=== PATIENT | male | born 1955 | race Caucasian/White ===

== ENCOUNTER 2017-11-04 17:46 | Inpatient (IN) | payer MEDICAID, OTHER ==
[~2017-11-04] VITALS: Ht 182.9 cm; Wt 81.3 kg
[~2017-11-04 17:46] MED LIST: ECASA81 PO; ENAL5TAB PO; FLUT1INH INH; FLUTI110I INH; HYDR-3580 PO; HYDR25TA5 PO; IPRASOL INH; METF500T PO; METO25TA3 PO; VIAG100T PO; WARF-60 PO; WARF4TAB52 PO
[2017-11-04 17:47] VITALS: BP 128/72; PULSE 68; RESP 18; TEMP 97.9; O2SAT 99
[2017-11-04] MEDS ORDERED: ENALAPRILAT 1.25 MG/ML VIAL IV PUSH PRN (18:00)
[2017-11-04] MEDS ORDERED: ONDANSETRON HCL 4 MG/2 ML VIAL IV PUSH PRN (18:00)
[2017-11-04] MEDS ORDERED: MAGNESIUM HYDROXIDE SUSP 30 ML CUP PO PRN (18:00)
[2017-11-04] MEDS: SODIUM CHLOR 0.9% 1000 ML INJ 1,000 ML IV SCH (18:00)
[2017-11-04] MEDS ORDERED: ACETAMINOPHEN/HYDROcodone 325 MG/5 MG TAB PO PRN ×2 (18:00)
[2017-11-04] MEDS ORDERED: PANTOPRAZOLE SODIUM 40 MG VIAL IVP SCH (18:00)
[2017-11-04] MEDS ORDERED: MISCELLANEOUS NURSING INFORMATION XX SCH (18:00)
[2017-11-04] MEDS ORDERED: SODIUM CHLORIDE 0.9% FLUSH 10 ML FLUSH IV FLUSH PRN (18:00)
[2017-11-04] MEDS ORDERED: CHLORHEXIDINE GLUCONATE 2 % 1 PACK (2 CLOTHS) TOP PRN (18:00)
--- NOTE | 2017-11-04 18:13 | PD ---
Physical Exam Date Seen by Provider: Nov 04, 2017 Time Seen by Provider: 18:01 Narrative The patient is a 62-year-old male was initially evaluated at [facility], after falling off a ladder. The patient denies any loss of consciousness, however, did suffer trauma to the left side of his body with abrasions to the forehead, contusion abrasions to the left shoulder, as well as abrasions to the hands and knees. The patient was evaluated and noted to have a subarachnoid hemorrhage as well as multiple left rib fractures, left clavicle fracture, and scapular fracture. The patient is on Coumadin for history of atrial fibrillation, his INR was 2.6 and they did not have case Center or FFP on scene. Therefore, the patient was transferred emergently to [facility]. The patient received case Center in the emergency department. I discussed the patient with the trauma surgeon who agrees with admission to the intensive surgical care unit. Incidentally, the patient states he had trauma one month ago and was evaluated at another hospital for possible subarachnoid hemorrhage, unsure if his current CT findings are acute or chronic. Data Data Last Documented VS Vital Signs Date Time Temp Pulse Resp B/P (MAP) Pulse Ox O2 Delivery O2 Flow Rate FiO2 11/04/17 17:47 97.9 68 18 128/72 (90) 99 Orders Orders Mrsa Pcr Surveillance (11/04/17 17:51) ^ Lab Follow Up (11/04/17 17:56) Type And Screen (11/04/17 17:56) Ct Brain W/O Iv Contrast(Rout) (11/05/17 06:56) Prothrombin Complex Conc Inj (Kcentra In (11/04/17 18:30) Hand, Limited (2vws) (11/04/17 ) Support Splint (11/04/17 17:58) MDM Medical Record Reviewed: Yes Supervised Visit with MELODY: No Interpretation(s) CT abdomen and pelvis reveals no acute traumatic findings in the abdomen and pelvis. Multiple left-sided rib fractures. Colonic diverticulosis, no evidence of acute diverticulitis. Cholelithiasis. CT cervical spine reveals no evidence of fracture. Multilevel degenerative findings. CT of the thorax reveals comminuted clavicular head fracture. Base of "cord process Fracture. Multiple left-sided rib fractures. No evidence of pneumothorax. Mild atelectasis at the lung bases. CT of the brain reveals hyperdense right MCA versus regional subarachnoid hemorrhage. MRI/MRA of the brain is recommended for further characterization of this region. Otherwise negative. No fracture. No midline shift Chest x-ray reveals left sixth rib fracture. Tiny left apical pneumothorax. Mild left basilar atelectasis. X-ray left shoulder reveals no evidence of acute fracture. Differential Diagnosis Differential diagnosis includes closed head injury, subarachnoid hemorrhage, coagulopathy, flail chest, rib fracture, pneumothorax, hemothorax, abrasion, fracture, hematoma. Narrative Course The patient was a transfer from [facility]. The patient arrived in the emergency department with a GCS of 15, he is awake, alert, oriented, vitals were stable. Pain had improved with morphine 4 mg intravenously ordered by myself via EMS protocol. The patient was evaluated by the trauma surgeon in the emergency department. He will receive KCentra and will be admitted to the intensive surgical care unit. The patient's left upper extremity was placed in a sling. X-ray the right hand was obtained. Patient appears to have an old healed boxer's fracture, no acute fractures noted. The patient was admitted to the intensive surgical care unit. Physician Communication Physician Communication The patient will be omitted to the intensive surgical care unit. Diagnosis Primary Impression: Subarachnoid hemorrhage following injury Qualified Codes: S06.6X0A - Traumatic subarachnoid hemorrhage without loss of consciousness, initial encounter Additional Impressions: Multiple rib fractures Qualified Codes: S22.42XA - Multiple fractures of ribs, left side, initial encounter for closed fracture Scapula coracoid process fracture Qualified Codes: S42.135A - Nondisplaced fracture of coracoid process, left shoulder, initial encounter for closed fracture Admitting Information Admitting Physician Requests: Admit Condition: Stable Keven Torres MD Nov 04, 2017 18:13
[2017-11-04] MEDS ORDERED: PROTHROMBIN COMPLEX CONC INJ 2,000 UNITS in SYRINGE/BAG 1 EA IV ONE (18:30)
--- NOTE | 2017-11-04 18:37 | RADRPT ---
EXAM DATE/TIME: 11/04/2017 18:08 [facility] COMPARISON: No previous studies available for comparison. INDICATIONS : Trauma due to getting hand caught in ladder. MEDICAL HISTORY : Hypertension. Diabetes mellitus type 2. Chronic obstructive pulmonary disease. SURGICAL HISTORY : None. ENCOUNTER: Initial ACUITY: 1 day PAIN SCORE: 5/10 LOCATION: Right upper extremity hand FINDINGS: No acute fracture or subluxation seen of the right hand. There is an old, healed fracture of the fift h metacarpal. Mild joint space narrowing seen of the second through fifth metacarpophalangeal joints. Soft tissue s welling is seen near the second metacarpophalangeal joint, nonspecific. No radiopaque foreign body. CONCLUSION: Soft tissue swelling near the second metacarpophalangeal joint without an acute fracture or subluxati on. Richard Quinteros MD on November 04, 2017 at 18:34 Board Certified Radiologist. This report was verified electronically.
--- NOTE | 2017-11-04 18:54 | MH ---
cc: FÁTIMA MERINO DATE OF ADMISSION: 11/04/2017 HISTORY OF PRESENT ILLNESS: This is a 62-year-old male who was up on a ladder and fell approximately 10 feet. He denies loss of consciousness. He got up at the scene. He states he started feeling bad so presented to the [facility] [facility] where he was worked up and found to have a subarachnoid hemorrhage, a scapular fracture, a clavicle fracture and rib fractures. The patient also has a history of atrial fibrillation on Coumadin and a request was made to transfer him to [facility]. On my evaluation, the patient is lying in bed in no acute distress. He complains of left-sided pain with chest pain. He denies shortness of breath. No abdominal pain. No paresthesias. No nausea. No vomiting. No neck pain. PAST MEDICAL HISTORY: His medical history is significant for: 1. Hypertension. 2. Atrial fibrillation. 3. Type 2 diabetes. MEDICATIONS: He is on: 1. Metoprolol. 2. Coumadin. 3. Metformin. ALLERGIES: HE DENIES ALLERGIES. SOCIAL HISTORY: He does smoke. He quit drinking six months ago. FAMILY HISTORY: Noncontributory. REVIEW OF SYSTEMS: Significant for the above, all other ten-point review negative. PHYSICAL EXAMINATION: GENERAL: On exam, he is lying on a stretcher in no acute distress. HEAD, EYES, EARS, NOSE, THROAT: His pupils are equal and reactive. He has an abrasion to his forehead. He has an abrasion to his left shoulder. Swelling to his left clavicle region. LUNGS: Respirations clear. CARDIOVASCULAR: Regular. CHEST: No crepitus. ABDOMEN: Abdomen soft and nontender. NEUROLOGICAL: Nonfocal. MUSCULOSKELETAL: Abrasion to his left knee. BACK: No step-offs. No abrasions. NECK: Nontender. RADIOLOGICAL STUDIES: CT of the head reveals a questionable subarachnoid hemorrhage. CT of the cervical spine - no acute fractures. CT of the thorax revealed a clavicle fracture and a scapular fracture, multiple left-sided rib fractures. CT of the abdomen and pelvis - no visceral injury. LABORATORY STUDIES: His INR is 2.6. ASSESSMENT: This is a patient who is status post fall with multiple injuries as above. He is being admitted to [facility]. He has received Kcentra for reversal of his INR. Neurosurgery as well as critical care and orthopedics have been consulted. Will monitor his neurological status, provide pain management, monitor respiratory status. MD LIZETH Nogueira/BRENDA /6:12 PM /6:26 PM
[2017-11-04 20:00] VITALS: BP 133/76; PULSE 57; RESP 15; TEMP 98.6; O2SAT 100
[2017-11-04] MEDS: HYDROmorphone HCL PF 2 MG/ML VIAL IV PRN (20:24)
[2017-11-04] MEDS: REMOVE OLD PATCH-NICOTINE T-DERMAL SCH (21:00)
--- NOTE | 2017-11-04 21:28 | PD.CONS ---
[facility] Service Critical Care Medicine Consult Requested By Dr. Osman Reason for Consult Critical care management of patient with polytrauma including traumatic SAH and multiple rib fractures. Primary Care Physician Unknown History of Present Illness 62 yo male with past medical history of atrial fibrillation on chronic anticoagulation with warfarin, hypertension, diabetes, tobacco abuse, COPD who was transferred to [facility] from [place] emergency department after reported fall from a 10 foot ladder. He states he had climbed onto his roof and was trying to come down the ladder when his right knee "gave out" and caused him to fall landing on his left side. He denied loss of consciousness. GCS 15. Workup at [place] included: CT brain -radiology report: increased density at right MCA territory which may be hyperdense MCA versus regional subarachnoid hemorrhage. No fracture CT C-spine - no fracture or subluxation. There are degenerative changes. CT chest - comminuted fracture left clavicular head with posterior displacement. Fracture of left scapula involving base of the coracoid process with 8 mm displacement. Nondisplaced lateral fifth rib fracture, displaced lateral sixth rib fracture, nondisplaced 7, eighth, ninth rib fractures. Small subcutaneous emphysema. No pneumothorax. Mildly basilar atelectasis. CT abdomen and pelvis - no acute traumatic injury. X-ray right hand - No fracture. soft tissue swelling 2nd MCP. Xray left shoulder - No acute injury noted on this view. AC joint arthrosis. Clinical exam not c/w MCA stroke. He received Kcentra 25 units per KG in the emergency department. Review of Systems Constitutional: DENIES: Fever Eyes: DENIES: Diplopia Respiratory: DENIES: Cough Cardiovascular: COMPLAINS OF: Chest pain, DENIES: Orthopnea Gastrointestinal: DENIES: Abdominal pain, Nausea, Vomiting Genitourinary: DENIES: Urinary frequency, Urinary incontinence, Urgency Musculoskeletal: COMPLAINS OF: Muscle aches, Back pain (left posterior thorax ( not over the spine)) Hematologic/lymphatic: COMPLAINS OF: Bruising Immunologic/allergic: DENIES: Urticaria Neurologic: DENIES: Headache Psychiatric: COMPLAINS OF: Suicidal Ideation Past Family Social History Allergies: Coded Allergies: No Known Allergies (Unverified Allergy, Unknown, 11/04/17) Past Medical History Atrial fibrillation on chronic anticoagulation with warfarin Hypertension COPD Type 2 diabetes mellitus Erectile dysfunction Past Surgical History Bilateral lens replacement Patient denies prior abdominal surgery to dc Reported Medications DuoNeb every 8 hours. 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 He began cutting back about a year ago but still smokes about a pack cigarettes per day He states he quit drinking completely about 6 months ago. He states he previously drank about 4-5 alcoholic beverages on weekend days only. No illicit drug use Physical Exam Vital Signs Vital Signs Date Time Temp Pulse Resp B/P (MAP) Pulse Ox O2 Delivery O2 Flow Rate FiO2 11/04/17 17:47 97.9 68 18 128/72 (90) 99 Physical Exam GENERAL: Well-nourished, well-developed patient who is sitting up in ISC bed. SKIN: Warm and dry. HEAD: Normocephalic. Abrasion around right eye, cheek, bilateral forehead. EYES: Pupils equal and round, 2mm and reactive bilaterally. No scleral icterus. No injection or drainage. ENT: No nasal bleeding or discharge. Mucous membranes pink and moist. NECK: Trachea midline. No JVD. CARDIOVASCULAR: Regular rate and rhythm, currently sinus rhythm on the monitor with rate in the 50s. No murmurs rubs or gallops. RESPIRATORY: Breathing reasonably comfortably on 2 L nasal cannula without accessory muscle use. Breath sounds equal bilaterally, Diminished bibasilar. No subcutaneous emphysema. SPINE: No midline tenderness, step-off, deformity. GASTROINTESTINAL: Abdomen soft, non-tender, nondistended. Bowel sounds present. Voiding. MUSCULOSKELETAL: Extremities without clubbing, cyanosis, or edema. Abrasion overlying left knee NEUROLOGICAL: Awake and alert. No obvious cranial nerve deficits, full extraocular movements.. Normal speech, oriented 4. No pronator drift on the right. He reports difficulty with moving his left upper extremity due to pain at the clavicle. 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 Strength is 5 out of 5 in bilateral lower extremities. Laboratory Laboratory Tests Test 11/04/17 19:20 Activated Partial Thromboplast Time 25.8 Assessment and Plan Problem List: (1) Clavicle fracture ICD Code: S42.009A - Fracture of unspecified part of unspecified clavicle, initial encounter for closed fracture Status: Acute (2) COPD (chronic obstructive pulmonary disease) ICD Code: J44.9 - Chronic obstructive pulmonary disease, unspecified Status: Chronic (3) Tobacco abuse ICD Code: Z72.0 - Tobacco use Status: Chronic (4) HTN (hypertension) ICD Code: I10 - Essential (primary) hypertension Status: Chronic (5) Atrial fibrillation ICD Code: I48.91 - Unspecified atrial fibrillation Status: Chronic (6) Subarachnoid hemorrhage following injury ICD Code: S06.6X9A - Traumatic subarachnoid hemorrhage with loss of consciousness of unspecified duration, initial encounter Status: Acute (7) Scapula coracoid process fracture ICD Code: S42.133A - Displaced fracture of coracoid process, unspecified shoulder, initial encounter for closed fracture Status: Acute (8) Multiple rib fractures ICD Code: S22.49XA - Multiple fractures of ribs, unspecified side, initial encounter for closed fracture Status: Acute (9) Warfarin-induced coagulopathy ICD Code: D68.32 - Hemorrhagic disorder due to extrinsic circulating anticoagulants; T45.515A - Adverse effect of anticoagulants, initial encounter Status: Acute Assessment and Plan NEURO: Traumatic subarachnoid hemorrhage secondary to fall from ladder Pain secondary to multiple traumatic injuries. GCS is 15 with no loss of consciousness. Neurochecks in [facility]. Follow up CT brain in a.m. 11/05 Reversal of warfarin anticoagulation as per below Neurosurgery has been consulted will follow-up recommendations. He reports pain is not adequately controlled currently. He takes Lortab 7.5 one tab every 6 hours as needed at home. Will increase pain medications to Percocet 7.5 1- 2 tabs every 4 hours as needed. Dilaudid 0.5 mill grams IV every 3 hours as needed for breakthrough pain. RESP: Multiple left rib fractures (lateral fifth-ninth ribs) COPD Ongoing tobacco abuse DuoNeb every 6 hours, EZPAP q6 hours. Albuterol every 2 hours as needed. IS q1 hour awake. Out of bed for pulmonary toilet Start Budesonide 0.5 mg inhaled twice a day. On Flovent 2 puffs inhaled twice a day at home. Tobacco cessation discussed. Nicotine patch. Follow-up chest x-ray in a.m. CV: Paroxysmal atrial fibrillation on chronic anticoagulation with warfarin Hypertension Hold warfarin and aspirin 81 mg by mouth daily due to subarachnoid hemorrhage. Continue metoprolol 25 mg by mouth daily Hold HCTZ 25 mill grams by mouth daily due to mild hyponatremia GI: Colonic diverticulosis (incidental finding) Asymptomatic cholelithiasis (incidental finding) Nothing by mouth except medications per trauma surgery CT abdomen pelvis 11/04 no acute traumatic injury.Colonic diverticulosis. Cholelithiasis. FEN/RENAL: Hyponatremia, mild Monitor sodium Voiding without difficulty. Monitor intake and output. Monitor electrolytes and replace as indicated. Erectile dysfunction - takes viagra prn ID: Monitor for signs and symptoms of infection HEME: Chronic anticoagulation with warfarin Warfarin on hold. Received KCentra. 25 units per KG in the emergency department. Will give Vitamin K 10 mg IV x1. Recheck INR. ENDO: Diabetes mellitus Hold metformin post IV contrast Low-dose insulin sliding scale ACh S MSK: Closed comminuted L clavicular head fracture Scapular fracture - base of L coracoid process Sling LUE. Orthopaedics consulted. PROPH: SCDs for DVT prophylaxis. Avoid pharmacologic DVT prophylaxis due to traumatic subarachnoid hemorrhage. Protonix 40 mg by mouth daily for stress ulcer prophylaxis. ACCESS: Peripheral IV providing adequate access at this time. Level 2 Consult. Problem Qualifiers (1) Atrial fibrillation: Qualified Codes: I48.0 - Paroxysmal atrial fibrillation (2) Subarachnoid hemorrhage following injury: Qualified Codes: S06.6X0A - Traumatic subarachnoid hemorrhage without loss of consciousness, initial encounter (3) Scapula coracoid process fracture: Qualified Codes: S42.135A - Nondisplaced fracture of coracoid process, left shoulder, initial encounter for closed fracture (4) Multiple rib fractures: Qualified Codes: S22.42XA - Multiple fractures of ribs, left side, initial encounter for closed fracture Estela Olguin MD Nov 04, 2017 21:28
[2017-11-04 22:00] VITALS: PULSE 57
[2017-11-04] MEDS ORDERED: MAGNESIUM SULFATE INJ 2 GM in SODIUM CHLORIDE 0.9% INJ 96 ML IV PRN (22:00)
[2017-11-04] MEDS ORDERED: POTASSIUM CHLOR 40 MEQ PREMIX 100 ML IV PRN ×2 (22:00)
[2017-11-04] MEDS ORDERED: MAGNESIUM OXIDE 400 MG TAB PO PRN (22:00)
[2017-11-04] MEDS ORDERED: POTASSIUM PHOSPHATE INJ 30 MMOL in SODIUM CHLOR 0.9% 250 ML INJ 250 ML IV PRN (22:00)
[2017-11-04] MEDS ORDERED: POTASSIUM CHLORIDE 25 MEQ EFFERVESCENT TAB PO PRN (22:00)
[2017-11-04] MEDS ORDERED: SODIUM PHOSPHATE INJ 30 MMOL in SODIUM CHLOR 0.9% 250 ML INJ 240 ML IV PRN (22:00)
[2017-11-04] MEDS ORDERED: POTASSIUM PHOSPHATE MONOBASIC 500 MG TAB PO PRN (22:00)
[2017-11-04] MEDS ORDERED: POTASSIUM PHOSPHATE MONOBASIC 500 MG TAB PO/TUBE PRN (22:00)
[2017-11-04] MEDS ORDERED: RESP: ALBUTEROL 2.5 MG/3 ML NEB (PRN) NEB (22:00)
[2017-11-04] MEDS ORDERED: MAGNESIUM SULFATE INJ 4 GM in SODIUM CHLORIDE 0.9% INJ 92 ML IV PRN (22:00)
[2017-11-04] MEDS ORDERED: DEXTROSE 50% IN WATER 50 ML VIAL(D50) IV PUSH PRN (22:00)
[2017-11-04] MEDS ORDERED: POTASSIUM CHLOR 20 MEQ PREMIX 100 ML IV PRN ×2 (22:00)
[2017-11-04] MEDS ORDERED: GLUCAGON 1 MG/ML VIAL OTHER PRN (22:00)
[2017-11-04] MEDS: DOCUSATE SODIUM 100 MG CAP PO SCH (22:01)
[2017-11-04] MEDS ORDERED: oxyCODONE/ACETAMINOPHEN 7.5 MG/325 MG TAB PO PRN ×2 (22:15)
[2017-11-04] MEDS ORDERED: PHYTONADIONE INJ 10 MG in SODIUM CHLORIDE 0.9% INJ 50 ML IV ONE (22:30)
[2017-11-04] MEDS: NICOTINE 21 MG/24 HR PATCH T-DERMAL SCH (22:30)
[2017-11-04 23:19] LABS: INTERNATIONAL NORMALIZED RATIO 1.3 RATIO; PROTHROMBIN TIME - PATIENT 13.1 SEC (9.8-11.6)
[2017-11-04] MEDS: BACITRACIN TOP OINT 15 GM TUBE TOP SCH (23:54)
[2017-11-05] VITALS (14 sets, daily range): BP systolic 97–120; BP diastolic 54–62; PULSE 57–86; RESP 16–22; TEMP 98.1–98.6; O2SAT 92–100
[2017-11-05] MEDS: NICOTINE 21 MG/24 HR PATCH T-DERMAL SCH ×2 (02:10→07:20)
[2017-11-05] MEDS: CHLORHEXIDINE GLUCONATE 2 % 1 PACK (2 CLOTHS) TOP SCH (04:00)
[2017-11-05] MEDS: SODIUM CHLOR 0.9% 1000 ML INJ 1,000 ML IV SCH (04:00)
[2017-11-05] MEDS: RESP: ALBUTEROL 2.5 MG/IPRATROPIUM 0.5 MG NEB (SCH) NEB ×4 (04:00→20:47)
--- NOTE | 2017-11-05 05:03 | RADRPT ---
EXAM DATE/TIME: 11/05/2017 04:49 [facility] COMPARISON: CT BRAIN W/O CONTRAST, November 04, 2017, 15:44. INDICATIONS : Follow up subarachnoid hemorrhage. RADIATION DOSE: 37.68 CTDIvol (mGy) MEDICAL HISTORY : None SURGICAL HISTORY : None. ENCOUNTER: Subsequent ACUITY: 1 day PAIN SCALE: 10/10 LOCATION: cranial TECHNIQUE: Multiple contiguous axial images were obtained of the head. Using automated exposure control and adj ustment of the mA and/or kV according to patient size, radiation dose was kept as low as reasonably a chievable to obtain optimal diagnostic quality images. DICOM format image data is available electro nically for review and comparison. FINDINGS: CEREBRUM: There is persistent linear hemorrhage seen in the right anterior temporal lobe is unchanged. The vent ricles are normal for age. No evidence of midline shift, mass lesion, or acute infarction. No focal extra-axial fluid collections are seen. POSTERIOR FOSSA: The cerebellum and brainstem are intact. The 4th ventricle is midline. The cerebellopontine angle i s unremarkable. EXTRACRANIAL: The visualized portion of the orbits is intact. There is focal right maxillary sinus disease. SKULL: The calvaria is intact. No evidence of skull fracture. CONCLUSION: Persistent focal linear hemorrhage at the right temporal region likely related subarachnoid hemorrhag e in the sylvian fissure. Richard Head MD on November 05, 2017 at 4:59 Board Certified Radiologist. This report was verified electronically.
[2017-11-05] MEDS: HYDROmorphone HCL PF 2 MG/ML VIAL IV PRN (05:07)
--- NOTE | 2017-11-05 06:05 | RADRPT ---
EXAM DATE/TIME: 11/05/2017 05:48 [facility] COMPARISON: CHEST SINGLE AP, November 04, 2017, 15:13. INDICATIONS : Follow up trauma due to a fall. MEDICAL HISTORY : Hypertension. Diabetes mellitus type 2. Chronic obstructive pulmonary disease.afib SURGICAL HISTORY : None. ENCOUNTER: Subsequent ACUITY: 2 days PAIN SCORE: 0/10 LOCATION: Bilateral chest FINDINGS: The heart size is normal. There is increased density at the bases bilaterally, worse on the left. The re is silhouetting of the left hemidiaphragm. This could be pleural fluid over the left apex. Left ri b fractures are seen. CONCLUSION: 1. Atelectasis and/or consolidation/contusion at the lower lungs being worse on the left. This findin g is worse when compared to the prior exam. 2. At least mild left pleural effusion. 3. A pneumothorax is not fluid seen. 4. Left rib fractures. Richard Head MD on November 05, 2017 at 6:01 Board Certified Radiologist. This report was verified electronically.
[2017-11-05 06:59] LABS: AUTOMATED NEUTROPHIL # 6.6 TH/MM3 (1.8-7.7); BASOPHIL % 0.3 % (0.0-2.0); EOSINOPHIL # 0.1 TH/MM3 (0-0.4); EOSINOPHIL % 1.5 % (0.0-4.0); HEMATOCRIT 36.7 % (39.0-51.0); HEMOGLOBIN 12.3 GM/DL (13.0-17.0); LYMPHOCYTE # 1.7 TH/MM3 (1.0-4.8); MEAN CELL VOLUME 87.1 FL (80.0-100.0); MEAN CORPUSCULAR HEMOGLOBIN 29.1 PG (27.0-34.0); MEAN CORPUSCULAR HGB CONC 33.5 % (32.0-36.0); MONO % 6.3 % (0.0-8.0); MONOCYTE # 0.6 TH/MM3 (0-0.9); NEUT % 72.9 % (16.0-70.0); PLATELET COUNT 248 TH/MM3 (150-450); RED BLOOD COUNT 4.21 MIL/MM3 (4.50-5.90); RED CELL DISTRIBUTION WIDTH 14.5 % (11.6-17.2)
[2017-11-05 07:00] LABS: AST (GOT) 15 U/L (15-37); BICARBONATE 29.1 MEQ/L (21.0-32.0); BLOOD UREA NITROGEN 16 MG/DL (7-18); CALCIUM 8.5 MG/DL (8.5-10.1); CHLORIDE 102 MEQ/L (98-107); GLOMERULAR FILTRATION RATE 97 ML/MIN (>89); GLUCOSE,RANDOM 133 MG/DL (74-106); SODIUM (NA) 136 MEQ/L (136-145)
[2017-11-05 07:01] LABS: ALT (GPT) 17 U/L (12-78); INTERNATIONAL NORMALIZED RATIO 1.3 RATIO; PROTHROMBIN TIME - PATIENT 12.7 SEC (9.8-11.6)
[2017-11-05 07:03] LABS: ALKALINE PHOSPHATASE 47 U/L (45-117); TOTAL BILIRUBIN ADULT 0.9 MG/DL (0.2-1.0); TOTAL PROTEIN 6.2 GM/DL (6.4-8.2)
[2017-11-05] MEDS: DOCUSATE SODIUM 100 MG CAP PO SCH (07:20)
[2017-11-05] MEDS: INSULIN ASPART SUPPLEMENTAL SCALE SQ SCH ×4 (07:20→20:48)
[2017-11-05] MEDS: PANTOPRAZOLE SOD 40 MG DELAYED RELEASE TAB PO SCH (07:20)
[2017-11-05] MEDS: METOPROLOL TARTRATE 25 MG TAB PO SCH ×2 (07:20→08:03)
[2017-11-05] MEDS: BACITRACIN TOP OINT 15 GM TUBE TOP SCH ×2 (07:21→20:47)
--- NOTE | 2017-11-05 07:44 | PD.ORT.PN ---
Subjective Subjective Remarks Fall from roof yesterday. Was checking for leaks. Landed on a concrete from top of ladder. Left shoulder and rib pain. Did hit his head but did not lose consciousness. Objective Vitals Vital Signs Date Time Temp Pulse Resp B/P (MAP) Pulse Ox O2 Delivery O2 Flow Rate FiO2 11/05/17 07:00 98 Nasal Cannula 3.00 11/05/17 06:00 59 11/05/17 05:14 98 Nasal Cannula 4.00 11/05/17 04:00 60 11/05/17 04:00 98.6 60 22 97/56 (70) 100 11/05/17 02:00 59 11/05/17 00:00 98.6 58 16 104/59 (74) 100 11/05/17 00:00 57 11/05/17 00:00 58 11/04/17 22:00 57 11/04/17 20:54 15 11/04/17 20:00 100 Nasal Cannula 2.00 11/04/17 20:00 98.6 57 15 133/76 (95) 100 11/04/17 20:00 57 11/04/17 17:47 97.9 68 18 128/72 (90) 99 I/O 11/04/17 11/04/17 11/04/17 11/05/17 11/05/17 11/05/17 06:59 14:59 22:59 06:59 14:59 22:59 Intake Total 80 ml 51 ml Output Total 400 ml Balance 80 ml -349 ml Intake IV Total 80 ml 51 ml Output Urine Total 400 ml # Voids 2 Result Diagram: 11/05/17 0600 11/05/17 0600 Other Results Laboratory Tests Test 11/04/17 22:20 11/05/17 06:00 Prothromb Time International Ratio 1.3 RATIO 1.3 RATIO Prothrombin Time 13.1 SEC (9.8-11.6) 12.7 SEC (9.8-11.6) Imaging Last [address] 11/05/17 0656 Signed Impressions: Service Date/Time: Sunday, November 05, 2017 04:49 - CONCLUSION: Persistent focal linear hemorrhage at the right temporal region likely related subarachnoid hemorrhage in the sylvian fissure. Richard Head MD Chest X-Ray 11/05/17 0000 Signed Impressions: Service Date/Time: Sunday, November 05, 2017 05:48 - CONCLUSION: 1. Atelectasis and/or consolidation/contusion at the lower lungs being worse on the left. This finding is worse when compared to the prior exam. 2. At least mild left pleural effusion. 3. A pneumothorax is not fluid seen. 4. Left rib fractures. Richard Head MD Objective Remarks Upper extremity: Pain to palpation over sternoclavicular joint and also inferior shoulder. He has no pain with elbow wrist or finger motion. Has intact sensation of her radioulnar median nerve distributions with good capillary refills. He is able to fully extend his fingers make a fist Assessment & Plan Assessment and Plan Left proximal clavicle fracture and coracoid process fracture of scapula. Nonweightbearing left upper extremity Sling to be worn when out of bed Minimal range of motion of the left shoulder. Continue medical care Incentive spirometry Follow-up x-rays in approximately [address] Fang or Reed Niño Jr. Nov 05, 2017 07:44
--- NOTE | 2017-11-05 07:49 | HHI.CCPN ---
Subjective Remarks/Hospital Course 62 yo male with past medical history of atrial fibrillation on chronic anticoagulation with warfarin, hypertension, diabetes, tobacco abuse, COPD who was transferred to [facility] from [facility] emergency department after reported fall from a 10 foot ladder. He states he had climbed onto his roof and was trying to come down the ladder when his right knee "gave out" and caused him to fall landing on his left side. He denied loss of consciousness. GCS 15. Workup at [facility] included: CT brain -radiology report: increased density at right MCA territory which may be hyperdense MCA versus regional subarachnoid hemorrhage. No fracture CT C-spine - no fracture or subluxation. There are degenerative changes. CT chest - comminuted fracture left clavicular head with posterior displacement. Fracture of left scapula involving base of the coracoid process with 8 mm displacement. Nondisplaced lateral fifth rib fracture, displaced lateral sixth rib fracture, nondisplaced 7, eighth, ninth rib fractures. Small subcutaneous emphysema. No pneumothorax. Mildly basilar atelectasis. CT abdomen and pelvis - no acute traumatic injury. X-ray right hand - No fracture. soft tissue swelling 2nd MCP. Xray left shoulder - No acute injury noted on this view. AC joint arthrosis. Clinical exam not c/w MCA stroke. He received Kcentra 25 units per KG in the emergency department. 11/05: Neuro exam intact/normal this morning. Hgb 12. Sore left side chest. Hungry. Objective Vital Signs Date Time Temp Pulse Resp B/P (MAP) Pulse Ox O2 Delivery O2 Flow Rate FiO2 11/05/17 07:00 98 Nasal Cannula 3.00 11/05/17 06:00 59 11/05/17 04:00 98.6 22 97/56 (70) Intake and Output 11/05/17 11/05/17 11/06/17 08:00 16:00 00:00 Intake Total 51 ml Output Total 400 ml Balance -349 ml Result Diagram: 11/05/1759911/05/17 06 Objective Remarks GENERAL: Well-nourished, skin abrasions arms. SKIN: Warm and dry. HEAD: Normocephalic. Abrasion over right eye, cheek, bilateral forehead. EYES: Pupils equal and round, 2mm and reactive bilaterally. ENT: No nasal bleeding or discharge. Mucous membranes pink and moist. NECK: Trachea midline. Airway widely patent CARDIOVASCULAR: Regular rate and rhythm, currently sinus rhythm. No murmurs rubs or gallops. No JVD. RESPIRATORY: Breathing reasonably comfortably on 2 L nasal cannula without accessory muscle use. Breath sounds equal bilaterally, Diminished bibasilar. No subcutaneous emphysema. SPINE: Cervical, No midline tenderness, step-off, deformity. GASTROINTESTINAL: Abdomen soft, non-tender, nondistended. Bowel sounds present. No guarding. Voiding. MUSCULOSKELETAL: Extremities without clubbing, cyanosis, or edema. Abrasion overlying left knee NEUROLOGICAL: Awake and alert. No obvious cranial nerve deficits, full extraocular movements. Normal speech, oriented 4. No pronator drift on the right. 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 Strength is 5 out of 5 in bilateral lower extremities. Clear speech, good memory. A/P Problem List: (1) Clavicle fracture ICD Code: S42.009A - Fracture of unspecified part of unspecified clavicle, initial encounter for closed fracture Status: Acute (2) COPD (chronic obstructive pulmonary disease) ICD Code: J44.9 - Chronic obstructive pulmonary disease, unspecified Status: Chronic (3) Tobacco abuse ICD Code: Z72.0 - Tobacco use Status: Chronic (4) HTN (hypertension) ICD Code: I10 - Essential (primary) hypertension Status: Chronic (5) Atrial fibrillation ICD Code: I48.91 - Unspecified atrial fibrillation Status: Chronic (6) Subarachnoid hemorrhage following injury ICD Code: S06.6X9A - Traumatic subarachnoid hemorrhage with loss of consciousness of unspecified duration, initial encounter Status: Acute (7) Scapula coracoid process fracture ICD Code: S42.133A - Displaced fracture of coracoid process, unspecified shoulder, initial encounter for closed fracture Status: Acute (8) Multiple rib fractures ICD Code: S22.49XA - Multiple fractures of ribs, unspecified side, initial encounter for closed fracture Status: Acute (9) Warfarin-induced coagulopathy ICD Code: D68.32 - Hemorrhagic disorder due to extrinsic circulating anticoagulants; T45.515A - Adverse effect of anticoagulants, initial encounter Status: Acute Assessment and Plan NEURO: Traumatic subarachnoid hemorrhage secondary to fall from ladder Pain secondary to multiple traumatic injuries. GCS is 15 with no loss of consciousness. Neurochecks in [facility]. Follow up CT brain in a.m. 11/05 Reversal of warfarin anticoagulation as per below Neurosurgery has been consulted will follow-up recommendations. He reports pain is not adequately controlled currently. He takes Lortab 7.5 one tab every 6 hours as needed at home. Will increase pain medications to Percocet 7.5 1- 2 tabs every 4 hours as needed. Dilaudid 0.5 mill grams IV every 3 hours as needed for breakthrough pain. RESP: Multiple left rib fractures (lateral fifth-ninth ribs) COPD Ongoing tobacco abuse DuoNeb every 6 hours, EZPAP q6 hours. Albuterol every 2 hours as needed. IS q1 hour awake. Out of bed for pulmonary toilet Start Budesonide 0.5 mg inhaled twice a day. On Flovent 2 puffs inhaled twice a day at home. Tobacco cessation discussed. Nicotine patch. Follow-up chest x-ray in a.m. CV: Paroxysmal atrial fibrillation on chronic anticoagulation with warfarin Hypertension Hold warfarin and aspirin 81 mg by mouth daily due to subarachnoid hemorrhage. Continue metoprolol 25 mg by mouth daily Hold HCTZ 25 mill grams by mouth daily due to mild hyponatremia GI: Colonic diverticulosis (incidental finding) Asymptomatic cholelithiasis (incidental finding) Nothing by mouth except medications per trauma surgery CT abdomen pelvis 11/04 no acute traumatic injury.Colonic diverticulosis. Cholelithiasis. FEN/RENAL: Hyponatremia, mild Monitor sodium Voiding without difficulty. Monitor intake and output. Monitor electrolytes and replace as indicated. Erectile dysfunction - takes viagra prn ID: Monitor for signs and symptoms of infection HEME: Chronic anticoagulation with warfarin Warfarin on hold. Received KCentra. 25 units per KG in the emergency department. Will give Vitamin K 10 mg IV x1. Recheck INR. ENDO: Diabetes mellitus Hold metformin post IV contrast Low-dose insulin sliding scale ACh S MSK: Closed comminuted L clavicular head fracture Scapular fracture - base of L coracoid process Sling LUE. Orthopaedics consulted. PROPH: SCDs for DVT prophylaxis. Avoid pharmacologic DVT prophylaxis due to traumatic subarachnoid hemorrhage. Protonix 40 mg by mouth daily for stress ulcer prophylaxis. ACCESS: Peripheral IV providing adequate access at this time. Overall impression: Stable and intact neurological function. Problem Qualifiers (1) Atrial fibrillation: Qualified Codes: I48.0 - Paroxysmal atrial fibrillation (2) Subarachnoid hemorrhage following injury: Qualified Codes: S06.6X0A - Traumatic subarachnoid hemorrhage without loss of consciousness, initial encounter (3) Scapula coracoid process fracture: Qualified Codes: S42.135A - Nondisplaced fracture of coracoid process, left shoulder, initial encounter for closed fracture (4) Multiple rib fractures: Qualified Codes: S22.42XA - Multiple fractures of ribs, left side, initial encounter for closed fracture Joe Ugarte MD Nov 05, 2017 07:49
[2017-11-05] MEDS: DOCUSATE SODIUM 50 MG/SENNA 8.6 MG TAB PO SCH ×2 (08:04→21:37)
[2017-11-05] MEDS: MAGNESIUM HYDROXIDE SUSP 30 ML CUP PO SCH ×2 (08:04→21:00)
[2017-11-05] MEDS: levETIRAcetam 500 MG TAB PO SCH ×2 (08:12→20:46)
--- NOTE | 2017-11-05 08:20 | MB ---
cc: MCNEALDEVANTE DATE OF CONSULTATION: 11/05/2017 REASON FOR CONSULTATION Left-sided rib fractures, left clavicle fracture, left scapula fracture. CONSULTING PHYSICIAN Dr. Jay Saini. HISTORY OF PRESENT ILLNESS Jl is a 62-year-old male who was up on a ladder. He was checking for a roof leak. He was approximately 10 feet high. The ladder slipped. He subsequently fell. He landed mostly on his left side. He had immediate left-sided chest pain and left shoulder pain. He also hit his head. He was seen in the emergency room and subsequently transferred to [place]. He was found to have a subarachnoid hemorrhage, left scapula fracture, left clavicle fracture, multiple left rib fractures. He is currently awake and alert. He is in Intensive Care. PAST MEDICAL HISTORY ILLNESSES 1. Hypertension. 2. Atrial fibrillation. 3. Type 2 diabetes. MEDICATIONS 1. Metoprolol. 2. Coumadin. 3. Metformin. ALLERGIES None. SOCIAL HISTORY The patient smokes. He quit drinking 6 months ago. He denies drug use. FAMILY HISTORY Noncontributory. REVIEW OF SYSTEMS The patient denies headache, visual changes, neck pain, abdominal pain, fevers or chills, nausea, vomiting, recent weight loss or numbness or tingling of extremities. He complains of left-sided rib and chest pain. He complains of left shoulder pain. Pain is worse with breathing or coughing. FAMILY HISTORY Noncontributory. PHYSICAL EXAMINATION GENERAL: The patient is a 62-year male who is awake and alert. He is in no acute distress. He appears well-developed, well-nourished. VITAL SIGNS: Temperature 98.6, pulse 59, respirations 22, blood pressure 97/56, O2 sat 98% on 3 liters nasal cannula. HEAD: The patient is normocephalic except for superficial abrasion on his forehead. Pupils are equal. NECK: Soft, nontender. Trachea is midline. CHEST: The patient is very tender to palpation of the left side of his ribs and chest. ABDOMEN: Soft, nontender, nondistended. EXTREMITIES: Examination of right arm reveals no significant pain with shoulder, elbow or wrist motion. He has intact sensation in all fingers. He has good cap refill in all fingers. Skin is intact. Radial pulses palpable. Examination of left arm reveals tenderness to palpation of the medial left clavicle. He also has tenderness over the acromion and coracoid process. He has mild discomfort with shoulder motion. He has no pain with elbow or wrist motion. He has intact sensation in all fingers. He has good cap refill in all fingers. Examination of lower extremities reveals no significant pain with hip, knee or ankle motion bilaterally. Skin is intact. He has intact sensation of both feet. IMAGING STUDIES CT scan of the chest was reviewed. CT scan of the chest reveals multiple left-sided rib fractures. There is also mildly comminuted fracture of the medial aspect of the clavicle. There is a minimally displaced fracture of the coracoid process. LABORATORY DATA The patient's white blood cell count was 9.0, hemoglobin is 12.3, and hematocrit is 36.7. His INR is 1.3. BUN is 16 and creatinine is 0.8. IMPRESSION 1. Hypertension. 2. Atrial fibrillation. 3. Multiple left-sided rib fractures. 4. Left clavicle fracture. 5. Left coracoid process fracture. PLAN Treatment options were discussed with the patient. At this point I would recommend nonsurgical treatment. The patient's clavicle and coracoid process fractures should heal well. He should wear a sling when he is up and around. He understands he will likely have some pain for 4 to 6 weeks. I would also recommend conservative treatment of his rib fractures at this time. All questions were answered. He may follow up with orthopedics in 2 weeks for repeat x-rays of his ribs and left clavicle. A mid-level provider in my office, nurse practitioner or PA, may see this patient on a follow-up basis and continue to implement the objective of this plan including: Starting or adjusting medications, injections of muscle, tendon, bursa or joints, cast application, orthotic or brace application, physical therapy, further radiographic studies including x-ray, MRI, CT, ultrasounds or bone scan, vascular studies, neurologic studies, or other specialist consultations, and proceeding with surgical management as appropriate. MD MAEGAN Whitehead/DONTAE /7:34 AM 7:57 AM
[2017-11-05] MEDS: RESP: BUDESONIDE 0.5 MG/2 ML NEB NEB SCH ×2 (08:59→20:00)
[2017-11-05] MEDS ORDERED: HYDROCHLOROTHIAZIDE 25 MG TAB PO SCH (09:00)
[2017-11-05] MEDS: oxyCODONE/ACETAMINOPHEN 7.5 MG/325 MG TAB PO PRN ×3 (09:44→21:37)
[2017-11-05] MEDS: BACITRACIN TOP OINT 15 GM TUBE TOPICAL SCH ×2 (10:50→23:39)
--- NOTE | 2017-11-05 11:15 | HHI.CCPN ---
Subjective Brief History 62-year-old male with diabetes mellitus atrial fibrillation on Coumadin, fell of about 10 foot ladder and was transferred from [facility] to [facility] Patient is placed in the ICU Final injuries Subarachnoid hemorrhage Left scapula/coracoid process fracture Left comminuted clavicle fracture Left 5,6,7,8,9, rib fractures with very tiny pneumothorax and small hemothorax Chest / pulmonary contusion In addition patient has above-noted atrial fibrillation and severe COPD due to tobacco abuse 24 Hour Review/Hospital Course 11/05/17 Patient has been stable since admission Is awake alert and oriented Pain management is adequate at this time Patient can be transferred to the floor for further care Objective Vital Signs Date Time Temp Pulse Resp B/P (MAP) Pulse Ox O2 Delivery O2 Flow Rate FiO2 11/05/17 10:00 62 11/05/17 08:00 98.2 20 97/54 (68) 98 11/05/17 07:00 Nasal Cannula 3.00 Intake and Output 11/05/17 11/05/17 11/06/17 08:00 16:00 00:00 Intake Total 51 ml 1000 ml Output Total 400 ml Balance -349 ml 1000 ml Result Diagram: 11/05/17 0600 11/05/17 0600 Imaging Last [address] 11/05/17 0656 Signed Impressions: Service Date/Time: Sunday, November 05, 2017 04:49 - CONCLUSION: Persistent focal linear hemorrhage at the right temporal region likely related subarachnoid hemorrhage in the sylvian fissure. Richard Head MD Chest X-Ray 11/05/17 0000 Signed Impressions: Service Date/Time: Sunday, November 05, 2017 05:48 - CONCLUSION: 1. Atelectasis and/or consolidation/contusion at the lower lungs being worse on the left. This finding is worse when compared to the prior exam. 2. At least mild left pleural effusion. 3. A pneumothorax is not fluid seen. 4. Left rib fractures. 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 Awake alert oriented no neurologic deficit Hemodynamic/Cardiac Hemodynamically remains stable Pulmonary/Respiratory Bilateral breath sounds splinting left chest and very tender over the left lateral chest with bruising Patient is barely chested, with end-stage COPD and severe stigmata of emphysema including use of accessory muscles He is at high risk of developing pneumonia and respiratory failure and matter-of -fact with end up on the respirator despite initially good course Will need respiratory therapy early ambulation and of course no smoking Abdomen/GI Nutrition Abdomen is soft patient will be started on a diet be transferred to floor Assessment and Plan Attestation Critical care 38 minutes Kaleigh Branch MD Nov 05, 2017 11:15
[2017-11-05] MEDS ORDERED: IOHEXOL 350 MG/ML 10 ML VIAL (for RAD DIAG) IVCONTRAST ONE (11:52)
--- NOTE | 2017-11-05 12:32 | RADRPT ---
EXAM DATE/TIME: 11/05/2017 11:47 [facility] COMPARISON: No previous studies available for comparison. INDICATIONS : Headache, subarachnoid, aneurysm IV CONTRAST: 100 cc Omnipaque 350 (iohexol) IV ; Cumulative dose for multiple exams. RADIATION DOSE: 9.7 CTDIvol (mGy) ; Combined studies MEDICAL HISTORY : Cardiovascular disease. Hypertension. Afib, Diabetes, skin cancer SURGICAL HISTORY : None listed ENCOUNTER: Subsequent ACUITY: 2 days PAIN SCALE: 6/10 LOCATION: cranial TECHNIQUE: Volumetric scanning was performed using a multi-row detector CT scanner. The data was post processed with a variety of visualization algorithms including full volume maximum intensity projection, multi -planar sliding thin slab reformation, curved planar reformation, and surface rendering techniques. Using automated exposure control and adjustment of the mA and/or kV according to patient size, radiat ion dose was kept as low as reasonably achievable to obtain optimal diagnostic quality images. DICO M format image data is available electronically for review and comparison. FINDINGS: There is excellent visualization of the major intracranial arteries out to the second-order branch ve ssels. There is no evidence for aneurysm, vessel truncation or stenosis, and no evidence for vascula r malformation. Bilateral sclerosis identified within the carotid bulbs bilaterally without evidence of significant n arrowing. CONCLUSION: No evidence of aneurysm or significant narrowing of the bilateral internal carotid arteries. Moderate bilateral vascular calcifications identified in the region of the carotid bulbs. Mary Celaya MD on November 05, 2017 at 12:27 Board Certified Radiologist. This report was verified electronically.
--- NOTE | 2017-11-05 12:38 | RADRPT ---
EXAM DATE/TIME: 11/05/2017 11:47 [facility] COMPARISON: No previous studies available for comparison. INDICATIONS : Headache, subarachnoid, aneurysm IV CONTRAST: 100 cc Omnipaque 350 (iohexol) IV ; Cumulative dose for multiple exams. RADIATION DOSE: 9.7 CTDIvol (mGy) ; Combined studies MEDICAL HISTORY : Cardiovascular disease. Hypertension. Afib, diabetes,skin cancer SURGICAL HISTORY : None listed ENCOUNTER: Initial ACUITY: 2 days PAIN SCALE: 6/10 LOCATION: neck Elevated flow velocities and ICA/CCA ratios have been found to correlate with increased degrees of vessel stenosis, calculated as percentage of diameter relative to a normal segment of distal ICA/CCA. TECHNIQUE: Volumetric scanning was performed using a multirow detector CT scanner. The data was post processed with a variety of visualization algorithms including full-volume maximum intensity projection, multip lanar sliding thin-slab reformation, curved-planar reformation, and surface-rendering techniques. Us ing automated exposure control and adjustment of the mA and/or kV according to patient size, radiatio n dose was kept as low as reasonably achievable to obtain optimal diagnostic quality images. DICOM f ormat image data is available electronically for review and comparison. FINDINGS: AORTIC ARCH: There is a three-vessel origin of the great vessels from the aorta. No evidence of ostial narrowing. RIGHT CAROTID: The common carotid artery is intact. The carotid bulb has a normal configuration without ulceration o r narrowing. The internal carotid artery lumen is smooth without stenosis. The external carotid ebony ry is intact. LEFT CAROTID: The common carotid artery is intact. The carotid bulb has a normal configuration without ulceration or narrowing. The internal carotid artery lumen is smooth without stenosis. The external carotid ar bhanu is intact. VERTEBRALS: The vertebral arteries have a symmetric diameter. No stenotic lesions are seen. CONCLUSION: There is atherosclerotic plaque identified within the carotid bulbs bilaterally without evidence of s tenosis, ulceration or narrowing.. Mary Celaya MD on November 05, 2017 at 12:34 Board Certified Radiologist. This report was verified electronically.
[2017-11-05] MEDS: METHOCARBAMOL 500 MG TAB PO SCH ×2 (14:00→20:47)
--- NOTE | 2017-11-05 15:12 | MB ---
cc: SHONA REYES M.D. DATE OF CONSULTATION: 11/05/2017. REASON FOR CONSULTATION: Traumatic subarachnoid hemorrhage. HISTORY OF PRESENT ILLNESS: This is a 62-year-old gentleman who was transferred from [facility] last evening after he presented there after falling off a ladder about 10 feet in height. He states he initially fell on his left side and fell forward and struck his head, although did not lose consciousness. His main complaint is left-sided chest wall pain with any movement or deep breathing along with the left shoulder pain. Denies any numbness or paresthesias in the upper or lower extremities. He does suffer from chronic low back pain and is being followed by Dr. Reeder from neurology and pain management. He is on Coumadin for atrial fibrillation and his PT/INR was elevated which was corrected with Kcentra. CT scan of the head reveals a subarachnoid hemorrhage overlying the right sylvian fissure. He also relates that a month ago his neurologist ordered an MRI and a subsequent MRA because is concerned about an aneurysm and was told that he did not have an aneurysm and this is just some scar tissue. He was reevaluated by trauma surgery as well as orthopedic surgery for his left clavicle and left scapula fractures along with multiple left rib fractures. PAST MEDICAL HISTORY: 1. Atrial fibrillation. 2. Diabetes mellitus. 3. Hypertension. 4. Chronic low back pain. 5. COPD. 6. Bilateral cataract lens replacement. MEDICATIONS: 1. Coumadin 10 milligrams daily. 2. Viagra 100 milligrams daily PRN 3. Metoprolol 25 milligrams daily. 4. Aspirin 81 milligrams daily. 5. Hydrochlorothiazide 25 milligrams daily. 6. Flovent two puffs twice a day. 7. Metformin 500 milligrams daily. 8. Hydrocodone / acetaminophen 7.5 milligrams every 6 hours as needed. 9. DuoNeb every 8 hours. SOCIAL HISTORY: He smokes over two packs a day and relates to me that he quit drinking although prior to six months ago he was drinking heavily. He relates that he is retired and does not work. FAMILY HISTORY: Family history positive for stroke and an heart disease in his father and otherwise negative. REVIEW OF SYSTEMS: Pertinent positives mentioned history present illness otherwise twelve point review of systems negative. PHYSICAL EXAMINATION: GENERAL: In general this is an elderly gentleman who is laying in bed in mild distress because of left chest wall pain with inspiration and movement. HEAD: He has multiple forehead and right periorbital abrasions and swelling. NECK: Neck is supple with no guarding with flexion/extension movement and trachea is midline. CHEST: Clear to auscultation bilaterally HEART: Regular rate rhythm. No murmurs. ABDOMEN: Soft, nontender. No hepatosplenomegaly. He does have less chest wall tenderness to palpation. EXTREMITIES: No cyanosis, edema although he does have abrasions on his bilateral knees. SKIN: He has abrasions in his forehead and bilateral knees. No rashes or pustules or any significant skin breakdown. NEUROLOGIC: He is awake, alert. Pupils are equal, reactive. Extraocular muscles intact. Face is symmetric. Tongue is midline. He has a left sling in place and relates that he cannot lift his left arm proximally although distally he has good strength. Fine touch sensation is intact in the upper and lower extremities. Negative Babinski. Speech is fluent. IMPRESSION: 1. 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 2. Multiple left-sided rib fractures with chronic COPD. 3. Left clavicle and scapular fractures. 4. Atrial fibrillation on chronic Coumadin therapy with the INR which has been corrected. PLAN: The patient will be continued with neuro monitoring and his activity status can be increased as tolerated. Followup CT scan of the head has been reviewed this morning and is stable with no progression of the small area of hemorrhage. I have recommended incentive spirometry use as he is at high risk for development of pneumonia and respiratory complications along with pain control as needed. Increased activity status as tolerated along with DVT mechanical prophylaxis. I have also requested a CT angiogram of the brain to rule out any vascular abnormality or aneurysm, particularly in the right middle cerebral artery area. He will need to withhold his anticoagulation for seven to ten days given the intracranial hemorrhage and increased risk with full anticoagulation to prevent further hemorrhage progression. This is discussed with the patient who understands and is in agreement. MD ALICIA Benavidez/BRENDA /12:22 PM /2:55 PM
[2017-11-05] MEDS: REMOVE OLD PATCH-NICOTINE T-DERMAL SCH (21:00)
[2017-11-06 00:25] VITALS: BP 146/97; PULSE 80; RESP 18; TEMP 96.9; O2SAT 92
[2017-11-06] MEDS: HYDROmorphone HCL PF 2 MG/ML VIAL IV PRN (00:26)
[2017-11-06] MEDS: CHLORHEXIDINE GLUCONATE 2 % 1 PACK (2 CLOTHS) TOP SCH (00:32)
[2017-11-06 04:03] VITALS: BP 111/68; PULSE 86; RESP 18; TEMP 97.9; O2SAT 92
[2017-11-06 04:43] LABS: AUTOMATED NEUTROPHIL # 5.8 TH/MM3 (1.8-7.7); BASOPHIL % 0.2 % (0.0-2.0); EOSINOPHIL # 0.1 TH/MM3 (0-0.4); EOSINOPHIL % 0.7 % (0.0-4.0); HEMOGLOBIN 11.6 GM/DL (13.0-17.0); LYMPH % 25.7 % (9.0-44.0); LYMPHOCYTE # 2.3 TH/MM3 (1.0-4.8); MEAN CELL VOLUME 87.5 FL (80.0-100.0); MEAN CORPUSCULAR HEMOGLOBIN 29.9 PG (27.0-34.0); MEAN CORPUSCULAR HGB CONC 34.2 % (32.0-36.0); MEAN PLATELET VOLUME 7.7 FL (7.0-11.0); MONO % 7.2 % (0.0-8.0); MONOCYTE # 0.6 TH/MM3 (0-0.9); NEUT % 66.2 % (16.0-70.0); PLATELET COUNT 230 TH/MM3 (150-450); RED BLOOD COUNT 3.89 MIL/MM3 (4.50-5.90); RED CELL DISTRIBUTION WIDTH 14.7 % (11.6-17.2); WHITE BLOOD COUNT 8.8 TH/MM3 (4.0-11.0)
[2017-11-06 05:04] LABS: BICARBONATE 31.6 MEQ/L (21.0-32.0); CALCIUM 8.6 MG/DL (8.5-10.1); CREATININE 0.85 MG/DL (0.60-1.30)
--- NOTE | 2017-11-06 05:06 | RADRPT ---
EXAM DATE/TIME: 11/06/2017 03:53 [facility] COMPARISON: CHEST SINGLE AP, November 05, 2017, 5:48. INDICATIONS : Short of breath. MEDICAL HISTORY : Hypertension. Diabetes mellitus type 2. Chronic obstructive pulmonary disease. Afib. SURGICAL HISTORY : None. ENCOUNTER: Subsequent ACUITY: 2 days PAIN SCORE: 0/10 LOCATION: Bilateral Chest FINDINGS: A single view of the chest demonstrates basilar air space disease. No significant effusion. No pneumo thorax. Heart size mildly enlarged. CONCLUSION: 1. Basilar airspace consolidation. Small effusions. No pneumothorax. Simone Marin MD on November 06, 2017 at 5:02 Board Certified Radiologist. This report was verified electronically.
[2017-11-06] MEDS: oxyCODONE/ACETAMINOPHEN 7.5 MG/325 MG TAB PO PRN ×2 (05:16→13:10)
[2017-11-06] MEDS: METHOCARBAMOL 500 MG TAB PO SCH ×2 (05:16→13:08)
[2017-11-06 07:56] VITALS: O2SAT 95
[2017-11-06 08:00] VITALS: BP 99/70; PULSE 70; RESP 17; TEMP 97.4; O2SAT 92
[2017-11-06] MEDS: INSULIN ASPART SUPPLEMENTAL SCALE SQ SCH ×2 (08:00→12:00)
[2017-11-06] MEDS: RESP: BUDESONIDE 0.5 MG/2 ML NEB NEB SCH (08:00)
[2017-11-06] MEDS: DOCUSATE SODIUM 50 MG/SENNA 8.6 MG TAB PO SCH (08:26)
[2017-11-06] MEDS: levETIRAcetam 500 MG TAB PO SCH (08:26)
[2017-11-06] MEDS: PANTOPRAZOLE SOD 40 MG DELAYED RELEASE TAB PO SCH (08:27)
[2017-11-06] MEDS: MAGNESIUM HYDROXIDE SUSP 30 ML CUP PO SCH (08:55)
[2017-11-06] MEDS: METOPROLOL TARTRATE 25 MG TAB PO SCH (08:55)
[2017-11-06] MEDS: NICOTINE 21 MG/24 HR PATCH T-DERMAL SCH (08:55)
[2017-11-06] MEDS: BACITRACIN TOP OINT 15 GM TUBE TOPICAL SCH (08:56)
[2017-11-06] MEDS: BACITRACIN TOP OINT 15 GM TUBE TOP SCH (08:56)
[2017-11-06] MEDS: RESP: ALBUTEROL 2.5 MG/IPRATROPIUM 0.5 MG NEB (SCH) NEB (10:00)
--- NOTE | 2017-11-06 10:07 | HHI.NSPN ---
(Farzad Guo) History Chief Complaint: left rib pain. (Farzad Guo) Interval History This is a 62-year-old gentleman who was transferred from [facility] Room last evening after he presented there after falling off a ladder about 10 feet in height. He states he initially fell on his left side and fell forward and struck his head, although did not lose consciousness. His main complaint is left-sided chest wall pain with any movement or deep breathing along with the left shoulder pain. Denies any numbness or paresthesias in the upper or lower extremities. He does suffer from chronic low back pain and is being followed by Dr. Reeder from neurology and pain management. He is on Coumadin for atrial fibrillation and his PT/INR was elevated which was corrected with Kcentra. CT scan of the head reveals a subarachnoid hemorrhage overlying the right sylvian fissure. He also relates that a month ago his neurologist ordered an MRI and a subsequent MRA because is concerned about an aneurysm and was told that he did not have an aneurysm and this is just some scar tissue. He was reevaluated by trauma surgery as well as orthopedic surgery for his left clavicle and left scapula fractures along with multiple left rib fractures. 11/06/17: Pt awake and alert. Sitting up on edge of bed. Complains of left rib pain. No headache. Mild nausea he states from pain medication. (Farzad Guo) Review of Systems General: Negative for: fever, chills, insomnia Respiratory: Negative for: shortness of breath, cough, sputum Cardiovascular: Positive for: chest pain (Left rib pain.) Gastrointestinal: Positive for: nausea, Negative for: vomitting, diarrhea, constipation (Farzad Guo) Exam Results Vital Signs Date Time Temp Pulse Resp B/P (MAP) Pulse Ox O2 Delivery O2 Flow Rate FiO2 11/06/17 08:00 97.4 70 17 99/70 (80) 92 11/06/17 07:56 Nasal Cannula 4.00 Intake and Output 1/11/06/17 11/07/17 08:00 16:00 00:00 Intake Total 360 ml Balance 360 ml (Farzad Guo) Physical Examination General: Pt sitting up on edge of bed complaining of left rib pain but otherwise in no acute distress. Resp: Clear to auscultation bilaterally. Heart: NSR no murmurs on auscultation. Abd: Soft positive bs Skin: Multiple abrasions forehead and extremities clean and dry. Muscle: Left upper extremity in a sling he stock feeder hands bilaterally and is ambulating. Neuro: Patient awake and alert. Speech clear and appropriate. He follows commands well. Pupils are 3 mm bilaterally reactive bilaterally. (Farzad Guo) Lab, Micro, Other Results Laboratory Tests Test 11/06/17 03:50 White Blood Count 8.8 TH/MM3 Red Blood Count 3.89 MIL/MM3 Hemoglobin 11.6 GM/DL Hematocrit 34.0 % Mean Corpuscular Volume 87.5 FL Mean Corpuscular Hemoglobin 29.9 PG Mean Corpuscular Hemoglobin Concent 34.2 % Red Cell Distribution Width 14.7 % Platelet Count 230 TH/MM3 Mean Platelet Volume 7.7 FL Neutrophils (%) (Auto) 66.2 % Lymphocytes (%) (Auto) 25.7 % Monocytes (%) (Auto) 7.2 % Eosinophils (%) (Auto) 0.7 % Basophils (%) (Auto) 0.2 % Neutrophils # (Auto) 5.8 TH/MM3 Lymphocytes # (Auto) 2.3 TH/MM3 Monocytes # (Auto) 0.6 TH/MM3 Eosinophils # (Auto) 0.1 TH/MM3 Basophils # (Auto) 0.0 TH/MM3 CBC Comment DIFF FINAL Differential Comment Blood Urea Nitrogen 16 MG/DL Creatinine 0.85 MG/DL Random Glucose 128 MG/DL Calcium Level 8.6 MG/DL Sodium Level 135 MEQ/L Potassium Level 3.8 MEQ/L Chloride Level 98 MEQ/L Carbon Dioxide Level 31.6 MEQ/L Anion Gap 5 MEQ/L Estimat Glomerular Filtration Rate 91 ML/MIN (Farzad Guo) Medical Decision Making Impression and Plan 1. 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 Followup CT scan of the head is stable with no progression of the small area of hemorrhage. 2. Multiple left-sided rib fractures with chronic COPD. 3. Left clavicle and scapular fractures. 4. Atrial fibrillation on chronic Coumadin therapy with the INR which has been corrected. PLAN: Increase activity with orthopedic restrictions Encouraged incentive spirometry. No neurosurgical intervention needed at this time. He will need to withhold his anticoagulation for seven to ten days given the intracranial hemorrhage and increased risk with full anticoagulation to prevent further hemorrhage progression. (Farzad Guo) Attending Statement The exam, history, and the medical decision-making described in the above note were completed with the assistance of the mid-level provider. I reviewed and agree with the findings presented. I attest that I had a [id number] encounter with the patient on the same day, and personally performed and documented my assessment and findings in the medical record. Stable examination. CT undergoing the brain with no aneurysm or vascular abnormality noted. Continue with observation and pain control. Increase activity status as tolerated. (Andrey Teague MD) Farzad Guo Nov 06, 2017 10:07 Andrey Teague MD Nov 06, 2017 11:34
[2017-11-06 10:29] VITALS: PULSE 73
[2017-11-06 12:00] VITALS: BP 114/66; PULSE 69; RESP 17; TEMP 97.8; O2SAT 96
[2017-11-06] MEDS ORDERED: METH500T3 PO (12:01)
[2017-11-06] MEDS ORDERED: LIDO1ADH4 T-DERMAL (12:42)
--- NOTE | 2017-11-06 13:20 | HHI.DS ---
Discharge Summary Admission Date Nov 04, 2017 at 19:04 Discharge Date: Nov 06, 2017 Admitting Diagnosis subarachnoid hemorrhage, multiple rib fractures, coagulopathy, scapu (1) Fall from ladder ICD Codes: W11.XXXA - Fall on and from ladder, initial encounter Diagnosis: Principal (2) Multiple rib fractures ICD Codes: S22.49XA - Multiple fractures of ribs, unspecified side, initial encounter for closed fracture Status: Acute (3) Scapula coracoid process fracture ICD Codes: S42.133A - Displaced fracture of coracoid process, unspecified shoulder, initial encounter for closed fracture Status: Acute (4) Subarachnoid hemorrhage following injury ICD Codes: S06.6X9A - Traumatic subarachnoid hemorrhage with loss of consciousness of unspecified duration, initial encounter Status: Acute (5) Clavicle fracture ICD Codes: S42.009A - Fracture of unspecified part of unspecified clavicle, initial encounter for closed fracture Status: Acute (6) COPD (chronic obstructive pulmonary disease) ICD Codes: J44.9 - Chronic obstructive pulmonary disease, unspecified Status: Chronic Brief History S/P trauma: Fall from ladder CBC/BMP: 11/06/17 0350 11/06/17 0350 Significant Findings Laboratory Tests Test 11/04/17 19:20 11/04/17 20:00 11/04/17 22:20 11/05/17 06:00 Prothrombin Time 13.1 SEC (9.8-11.6) 12.7 SEC (9.8-11.6) Red Blood Count 4.21 MIL/MM3 (4.50-5.90) Hemoglobin 12.3 GM/DL (13.0-17.0) Hematocrit 36.7 % (39.0-51.0) Neutrophils (%) (Auto) 72.9 % (16.0-70.0) Random Glucose 133 MG/DL (74-106) Total Protein 6.2 GM/DL (6.4-8.2) Albumin 3.0 GM/DL (3.4-5.0) Test 11/06/17 03:50 Red Blood Count 3.89 MIL/MM3 (4.50-5.90) Hemoglobin 11.6 GM/DL (13.0-17.0) Hematocrit 34.0 % (39.0-51.0) Random Glucose 128 MG/DL (74-106) Sodium Level 135 MEQ/L (136-145) Imaging Last Impressions Chest X-Ray 11/06/17 0600 Signed Impressions: Service Date/Time: Monday, November 06, 2017 03:53 - CONCLUSION: 1. Basilar airspace consolidation. Small effusions. No pneumothorax. Simone Marin MD Head CT 11/05/17 0656 Signed Impressions: Service Date/Time: Sunday, November 05, 2017 04:49 - CONCLUSION: Persistent focal linear hemorrhage at the right temporal region likely related subarachnoid hemorrhage in the sylvian fissure. Richard Head MD Neck CTA 11/05/17 0000 Signed Impressions: Service Date/Time: Sunday, November 05, 2017 11:47 - CONCLUSION: There is atherosclerotic plaque identified within the carotid bulbs bilaterally without evidence of stenosis, ulceration or narrowing.. Mary Celaya MD Head CTA 11/05/17 0000 Signed Impressions: Service Date/Time: Sunday, November 05, 2017 11:47 - CONCLUSION: No evidence of aneurysm or significant narrowing of the bilateral internal carotid arteries. Moderate bilateral vascular calcifications identified in the region of the carotid bulbs. Mary Celaya MD Hand X-Ray 11/04/17 0000 Signed Impressions: Service Date/Time: Saturday, November 04, 2017 18:08 - CONCLUSION: Soft tissue swelling near the second metacarpophalangeal joint without an acute fracture or subluxation. Richard Quinteros MD PE at Discharge GENERAL: 62-year-old well developed male OOB in chair in no acute distress. SKIN: Warm and dry. Scattered facial abrasions noted. HEAD: Normocephalic. EYES: Pupils equal and round. No scleral icterus. ENT: No nasal bleeding or discharge. Mucous membranes pink and moist. NECK: Trachea midline. No JVD. CARDIOVASCULAR: Regular rate and rhythm. RESPIRATORY: No accessory muscle use. Lungs clear and diminished to auscultation. Breath sounds equal bilaterally. Barrel chest noted. Left chest tender to palpation. GASTROINTESTINAL: Abdomen soft, non-tender, nondistended. + BS. MUSCULOSKELETAL: Extremities without cyanosis, or edema. MAEW, + perfused. LUE in sling. NEUROLOGICAL: Awake and alert. Normal speech. Hospital Course [place]: Fell off of a ladder at approximately 10 feet landing on his left side. No LOC. GCS= 15. On Coumadin for Afib- received K-centra. Transferred for trauma services. INJURIES: RIGHT temporal SAH LEFT clavicle fx LEFT scapula fx LEFT rib fxs (5-9) LEFT MACK LEFT pulmonary contusion PMHx: HTN, Afib, DM, tobacco use, COPD, chronic neck pain, quit ETOH 6 months ago RIGHT temporal SAH Neurosurgery consulted Supportive care Serial neuro checks-unchanged No seizure activity Hold Coumadin for 7-10 days 11/05: Repeat head CT shows stable SAH 11/05: Head/Neck CTA- Bilat sclerosis w/in carotid bulbs bilat w/o significant narrowing d/w Farzad-okay for discharge- follow-up outpatient LEFT clavicle fx, LEFT scapula fx Orthopedics consulted Nonoperative management NWB LUE Maintain sling Follow-up outpatient LEFT rib fxs, LEFT MACK, LEFT pulmonary contusion, Hx COPD Supportive care Pulmonary toileting- continue at home Pain control OOB- PT ordered CXR today shows no PTX, small bilateral effusions Smoking cessation Continue home neb treatments A. fib Hold Coumadin for 7-10 days Follow-up with PCP as outpatient Plan of care discussed with patient at bedside. Patient insistent on being discharged today. DC home. Pt Condition on Discharge: Stable Discharge Disposition: Discharge Home Discharge Instructions DIET: Follow Instructions for: Diabetic Diet Activities you can perform: See Additionl Instruction Activities to Avoid: Concussion Sports, Contact Sports, Lifting/Bending, Strenuous Activity Other Activity Instructions: Nonweight bearing left arm- maintain sling. Smoking cessation. Continue use of incentive spirometer and acapella at home. Kris Sykes Nov 06, 2017 13:20
== END 2017-11-06 13:22 | disposition home or self-care (01) | DRG 964 ==
LOC: NEPC 17:46 → NEDA 19:04 → N03A 19:36 → N06B 11-06 00:05
PROVIDERS: ADMIT Surgery; ATTEND Surgery
DX: S06.6X0A Traumatic subarachnoid hemorrhage without loss of consciousness, initial encounter (principal); S22.42XA Multiple fractures of ribs, left side, initial encounter for closed fracture; S27.321A Contusion of lung, unilateral, initial encounter; S27.2XXA Traumatic hemopneumothorax, initial encounter; T79.7XXA Traumatic subcutaneous emphysema, initial encounter; E87.1 Hypo-osmolality and hyponatremia; J98.11 Atelectasis; I48.0 Paroxysmal atrial fibrillation; S00.81XA Abrasion of other part of head, initial encounter; S40.212A Abrasion of left shoulder, initial encounter; S60.511A Abrasion of right hand, initial encounter; S60.512A Abrasion of left hand, initial encounter; S42.002A Fracture of unspecified part of left clavicle, initial encounter for closed fracture; S42.132A Displaced fracture of coracoid process, left shoulder, initial encounter for closed fracture; S80.212A Abrasion, left knee, initial encounter; I10 Essential (primary) hypertension; E11.9 Type 2 diabetes mellitus without complications; K57.30 Diverticulosis of large intestine without perforation or abscess without bleeding; K80.20 Calculus of gallbladder without cholecystitis without obstruction; G89.29 Other chronic pain; M54.5 Low back pain; J43.9 Emphysema, unspecified; R40.2412 Glasgow coma scale score 13-15, at arrival to emergency department; F17.210 Nicotine dependence, cigarettes, uncomplicated; W11.XXXA Fall on and from ladder, initial encounter; Z79.01 Long term (current) use of anticoagulants; Z79.84 Long term (current) use of oral hypoglycemic drugs
CPT/HCPCS: 70450; 70496; 70498; 71045; 71260; 72125; 73030; 73120; 74177; 80048; 80053; 82948; 85025; 85610; 85730; 86850; 86900; 86901; 87641; 94150; 94640; 94664; 99285; C9113; C9132; J1170; J1815; J2405; J3430; J7030; J7613; J7626; Q9967